=== PATIENT | female | born 1970 | race Caucasian/White ===

== ENCOUNTER → 2018-07-18 | Outpatient (CLI) | payer BC, OTHER ==
--- NOTE | 2018-07-18 16:31 | RAD ---
Examination: Lower Extremity Venous Doppler Ultrasound History: Left calf pain Comparison: None Procedure: [place] scale, color flow 2D and spectal waveform analysis images are obtained with and without compression in the area of the common femoral vein, superficial femoral vein - femoral vein junction, main femoral vein (superficial femoral vein) and popliteal vein. Veins of the proximal calf are also imaged. Findings: There is normal duplex flow, color flow and compressibility of all visualized vein segments. No evidence of deep venous thrombus is present. Impression: No evidence of DVT in the visualized left lower extremity venous system. Electronically signed by: Wilberto Davison MD (07/18/2018 4:27 PM) [place] [id number]
== END | disposition home or self-care (01) ==
LOC: US 15:05
PROVIDERS: ATTEND Registered Nurse
DX: M79.662 Pain in left lower leg (principal)
CPT/HCPCS: 93971

== ENCOUNTER → 2019-08-21 | Outpatient (CLI) | payer BC ==
[~2019-08-21] MED LIST: IOHEXOL 240 MG/ML 50ML VIAL. ONE; IOHEXOL 240 MG/ML 50ML VIAL. PO ONE; IOHEXOL 300 MG/ML 75 ML VIAL. IV ONE
--- NOTE | 2019-08-21 15:31 | RAD ---
CT study of the abdomen and pelvis with contrast Clinical indications: Right-sided abdominal pain for 3 days. TECHNIQUE: After IV infusion of 75 cc of Omnipaque 300, helical CT scanning of the abdomen and pelvis was performed. GI contrast was administered per mouth. PQRS compliance Statement One or more of the following individualized dose reduction techniques were utilized for this study: 1. Automated exposure control 2. Adjustment of the mA and/or kV according to patient size 3. Use of iterative reconstruction technique COMPARISON: None available. FINDINGS: The liver and spleen and pancreas are normal. The gallbladder is normal and no extra hepatic biliary ductal dilatation is seen. No adrenal mass is evident. There is moderate left-sided hydronephrosis and proximal left hydroureter due to a 7 mm stone located 5 cm distal to the UPJ. Additional punctate stones of the left kidney are seen. No right urinary tract stone is evident. Urinary bladder is not abnormally distended. Urinary bladder wall is smooth. No focal aneurysmal dilatation of the abdominal aorta is seen. No enlarged abdominal or pelvic lymphadenopathy is evident. No uterine mass is seen. A right ovarian cyst is seen measuring 24 mm. Left ovarian cyst is seen measuring 14 mm. Small amount of free fluid is seen within the cul-de-sac. Terminal ileum is unremarkable. The appendix is abnormally distended with wall thickening. The appendix measures up to 18 mm in caliber. There is moderate periappendiceal inflammatory change. No periappendiceal free fluid or abscess is seen. No obstructive bowel pattern is evident. No free air is seen. No lung base consolidation is seen. No lytic process is evident. IMPRESSION: Appendicitis. Moderate periappendiceal inflammation is seen but no free fluid or abscess is seen around the appendix. The appendix measures up to 18 mm in caliber. Moderate left-sided hydronephrosis and hydroureter due to a proximal left ureteral stone measuring 7 mm in size located 5 cm distal to the UPJ. Additional punctate stones of the left kidney are seen. Bilateral follicular ovarian cysts. Small amount free fluid within the cul-de-sac may be secondary to the appendicitis. FOR INTERNAL CODING PURPOSES Critical result: Findings discussed with Kendra Harris at 08/21/2019 3:25 PM. RESULT CODE: (C) Electronically signed by: Pete Page MD (08/21/2019 3:28 PM) [facility]
== END | disposition home or self-care (01) ==
LOC: CT 13:28
PROVIDERS: ATTEND Registered Nurse
DX: N20.0 Calculus of kidney (principal); N13.30 Unspecified hydronephrosis; N83.292 Other ovarian cyst, left side; K37 Unspecified appendicitis
CPT/HCPCS: 74177; Q9966; Q9967

== ENCOUNTER → 2020-03-05 | Outpatient (CLI) | payer BC ==
--- NOTE | 2020-03-05 13:04 | RAD ---
EXAMINATION: CT ABDOMEN PELVIS WO CONTRAST CLINICAL HISTORY: Nephrolithiasis, worse on the right TECHNIQUE: Non-IV contrast imaging of the abdomen and pelvis was performed using standard technique, scanning from just above the dome of the diaphragm to the symphysis pubis. Unenhanced imaging is limited for the evaluation of some intra-abdominal and pelvic pathology. CT Dose Reduction Employed: One or more of the following individualized dose reduction techniques were utilized for this examination: 1. Automated exposure control 2. Adjustment of the mA and/or kV according to patient size 3. Use of iterative reconstruction technique. COMPARISON: None. FINDINGS: Lower thorax: Minimal right basilar subsegmental atelectasis. Liver: Unremarkable. Biliary: The gallbladder is unremarkable. Spleen: Calcified granulomata. No splenomegaly. Pancreas: Unremarkable. Adrenals: No mass. Kidneys: Moderate right hydroureteronephrosis with 4 mm calculus in the distal ureter just proximal to the ureterovesical junction. No right renal calculi visualized. Nonobstructive left renal calculi measuring up to 4 mm. No evidence of solid or cystic renal mass in the unenhanced kidneys. GI Tract: No bowel dilation. Appendectomy. Lymph Nodes: No lymphadenopathy. Mesentery/peritoneum: No ascites. Retroperitoneum: No mass. Vasculature: No abdominal aortic or iliac artery aneurysm. Pelvis: No mass or ascites. Mildly filled urinary bladder. Dominant left ovarian follicle, otherwise uterus and adnexa are unremarkable. Bones/Soft Tissues: No acute osseous abnormality. IMPRESSION: Moderate right hydroureteronephrosis secondary to 4 mm distal ureteral calculus. Electronically signed by: South Roman DO (03/05/2020 1:01 PM) [id number]
== END | disposition home or self-care (01) ==
LOC: CT 11:06
PROVIDERS: ATTEND Physician Assistant
DX: N13.2 Hydronephrosis with renal and ureteral calculous obstruction (principal); J98.11 Atelectasis; D73.89 Other diseases of spleen
CPT/HCPCS: 74176

== ENCOUNTER → 2021-10-03 | Outpatient (CLI) | payer BC, OTHER ==
--- NOTE | 2021-10-03 12:19 | RAD ---
EXAM: ULTRASOUND SOFT TISSUE NECK CLINICAL HISTORY: Reason: ELEVATED THYROID LEVELS / Spl. Instructions: / History: COMPARISON: None available. TECHNIQUE: Ultrasound examination of the thyroid gland was performed FINDINGS: Sonographic evaluation of the thyroid gland was performed and evaluated using ACR TI-RADS criteria. The right thyroid lobe measures 4.3 x 1.4 x 0.9 cm. The left thyroid lobe measures 4.5 x 1.4 x 1.0 cm . The isthmus measures 1.6 mm. Diaphragm is homogeneous. Normal vascularity. No thyroid nodules. Just posterior lateral to the right thyroid lobe is a 1.3 x 0.9 x 1.0 cm hypoechoic lymph node with f atty hilum and prominent blood flow. There is mild cortical thickening. IMPRESSION: 1. Normal thyroid gland. No thyroid nodules. 2. Prominent lymph node with mild cortical thickening just posterior and lateral to the right thyroid lobe. Consider CT of the neck to fully evaluate or follow-up ultrasound in 3-6 months to ensure stab ility. Electronically signed by: Yazmin Alaniz MD (10/03/2021 12:16 PM) [id number]
== END ==
LOC: US 10:59
PROVIDERS: ATTEND Physician Assistant Medical
DX: R94.6 Abnormal results of thyroid function studies (principal)
CPT/HCPCS: 76536